=== PATIENT | female | born 1965 | race Caucasian/White ===

== ENCOUNTER 2021-09-26 16:00 | Emergency (ER) | payer BC ==
[2021-09-26] MEDS ORDERED: Norflex 60 MG/2 ML ONE (16:19)
[2021-09-26] MEDS ORDERED: TORAdol 30 mg Injection ONE (16:19)
[2021-09-26] MEDS ORDERED: TORAdol 30 mg Injection IM ONE (16:30)
[2021-09-26] MEDS ORDERED: Norflex 60 MG/2 ML IM ONE (16:30)
--- NOTE | 2021-09-26 17:14 | XRAY ---
Indication: Pain. No known injury. Comparison: None 3 view right shoulder demonstrates mild osteopenia. No other bony, articular, or soft tissue abnormalities.
[2021-09-26] MEDS ORDERED: PERCOCET TABLET 5/325MG PO STA (17:34)
[2021-09-26] MEDS ORDERED: NORCO 5/325 MG PO ONE (17:34)
[2021-09-26] MEDS ORDERED: PERCOCET TABLET 5/325MG ONE (17:37)
[2021-09-26] MEDS ORDERED: NORCO 5/325 MG ONE (17:38)
--- NOTE | 2021-09-26 17:54 | ERPHSYRPT ---
- History of Present Illness Time Seen by Provider: 09/26/21 16:07 Source: patient Exam Limitations: no limitations Patient Subjective Stated Complaint: pt here for pain to upper right arm since thursday getting worse, with numbess to fingers, she was seen by chiropractor on thursday, and is taking soma. no injury Triage Nursing Assessment: pt walked in, resp easy, crying out in pain, face mask in place, no bruisng or swelling noted, has full range of motion to arm, strong radial pulse Physician History: 56 years old female with history of chronic pain syndrome, hypertension, hypothyroidism, GERD presented in the ER with chief complaint of right shoulder pain sudden onset 3 days ago with radiation to right upper extremity moderate to severe sharp nature pain without any significant aggravating or relieving factor s. Reports occasional partial relief with moving in a certain position with some tingling sensation in the fingers as well. She was seen at chiropractor office for possible radiculopathy but did not see any improvement. Denies any weakness in right upper extremity or limitation range of motion. Denies any neck pain. No fall or trauma reported. No chest pain palpitations or shortness of breath. Occurred: days ago (3) Method of Injury: unknown Quality: sharpness Severity of Pain-Max: severe Severity of Pain-Current: severe Extremities Pain Location: shoulder: right, arm: right Modifying Factors: Improves With: nothing Associated Symptoms: none Allergies/Adverse Reactions: amoxicillin trihydrate [From Amoxil] Allergy (Mild, Verified 09/26/21 16:14) aspirin Allergy (Mild, Verified 09/26/21 16:14) cephalexin monohydrate [From Keflex] Allergy (Mild, Verified 09/26/21 16:14) morphine Allergy (Mild, Verified 09/26/21 16:14) Penicillins Allergy (Mild, Verified 09/26/21 16:14) Home Medications: Amlodipine Besylate [Norvasc] 5 mg PO DAILY 06/14/13 [History] Carisoprodol [Soma] 350 mg PO BID 06/14/13 [History] Celecoxib [Celebrex] 100 mg PO DAILY 06/14/13 [History] Esomeprazole Magnesium [Nexium] 40 mg PO DAILY 06/14/13 [History] Levothyroxine Sodium [Synthroid] 50 mcg PO DAILY 06/14/13 [History] Hx Tetanus, Diphtheria Vaccination/Date Given: No Hx Influenza Vaccination/Date Given: No Hx Pneumococcal Vaccination/Date Given: No Immunizations Up to Date: Yes Travel Risk - International Travel Have you traveled outside of the country in past 3 weeks: No - Coronavirus Screening Are you exhibiting any of the following symptoms?: No Close contact with a COVID-19 positive Pt in past 14-21 Days: No - Vaccine Status Have you recieved a Covid-19 vaccination: No - Review of Systems Constitutional: No Symptoms Eyes: No Symptoms Ears, Nose, & Throat: No Symptoms Respiratory: No Symptoms Cardiac: No Symptoms Abdominal/Gastrointestinal: No Symptoms Genitourinary Symptoms: No Symptoms Musculoskeletal: Joint Pain Skin: No Symptoms Neurological: No Symptoms Psychological: Anxiety Endocrine: No Symptoms Hematologic/Lymphatic: No Symptoms - Past Medical History Pertinent Past Medical History: Yes Cardiac History: Hypertension Endocrine Medical History: Hypothyroidism Musculoskeletal History: Arthritis GI Medical History: GERD, Other Other Medical History: CHRONIC BACK PAIN - Past Surgical History Past Surgical History: Yes Female Surgical History: Section, Tubal Ligation - Social History Smoking Status: Current every day smoker How long have you smoked: 20 Exposure to second hand smoke: Yes Drug Use: none Patient Lives Alone: No - Female History Hx Last Menstrual Period: now Hx Now: No - Nursing Vital Signs Nursing Vital Signs: Initial Vital Signs Temperature 97.2 F 09/26/21 16:08 Pulse Rate 100 H 09/26/21 16:08 Respiratory Rate 20 09/26/21 16:08 Blood Pressure 147/84 09/26/21 16:08 O2 Sat by Pulse Oximetry 96 09/26/21 16:08 Pain Scale Pain Intensity 8 - Physical Exam General Appearance: no apparent distress, alert, anxiety Eyes, Ears, Nose, Throat Exam: normal ENT inspection Neck Exam: normal inspection, non-tender, supple, full range of motion Cardiovascular/Respiratory Exam: chest non-tender, normal breath sounds, regular rate/rhythm, heart sounds normal Back Exam: normal inspection, normal range of motion, No CVA tenderness Shoulder Exam: normal inspection, non-tender, no evidence of injury, normal ROM, No bone tenderness, No soft tissue tenderness Elbow/Forearm Exam: normal inspection, non-tender, no evidence of injury, normal ROM Wrist Exam: normal inspection, non-tender, no evidence of injury, normal ROM Hand Exam: normal inspection, non-tender, no evidence of injury, normal ROM DTR - Upper Extremity Exam: bicep (R): 2+, bicep (L): 2+, tricep (R): 2+, tricep (L): 2+ Neuro/Tendon Exam: normal sensation, normal motor functions Mental Status Exam: alert, oriented x 3, cooperative Skin Exam: normal color SpO2 Interpretation: normal SpO2: 95 O2 Delivery: Room Air Ordered Tests: Active Orders 24 hr Category Date Time Status SHOULDER Stat Exams 09/26/21 16:58 Completed Medication Summary Discontinued Medications Generic Name Dose Route Start Last Admin Trade Name Lázaro PRN Reason Stop Dose Admin Hydrocodone Bitart/Acetaminophen 2 tab 09/26/21 17:34 09/26/21 17:38 Hydrocodone/Apap 5/325 Mg Tablet PO 09/26/21 17:35 2 tab SENT HOME W/ PATIENT ONE Administration Hydrocodone Bitart/Acetaminophen Confirm 09/26/21 17:38 Hydrocodone/Apap 5/325 Mg Tablet Administered 09/26/21 17:39 Dose 2 tab .ROUTE .STK-MED ONE Ketorolac Tromethamine Confirm 09/26/21 16:19 Ketorolac Tromethamine 30 Mg/Ml Inj Administered 09/26/21 16:20 Dose 30 mg .ROUTE .STK-MED ONE Ketorolac Tromethamine 30 mg 09/26/21 16:30 09/26/21 16:32 Ketorolac Tromethamine 30 Mg/Ml Inj IM 09/26/21 16:31 30 mg STAT ONE Administration Orphenadrine Citrate Confirm 09/26/21 16:19 Orphenadrine Citrate 60 Mg/2 Ml Amp Administered 09/26/21 16:20 Dose 60 mg .ROUTE .STK-MED ONE Orphenadrine Citrate 60 mg 09/26/21 16:30 09/26/21 16:31 Orphenadrine Citrate 60 Mg/2 Ml Amp IM 09/26/21 16:31 60 mg STAT ONE Administration Oxycodone/Acetaminophen 2 tab 09/26/21 17:34 09/26/21 17:39 Oxycodone Hcl/Apap 5 Mg/325 Mg Tablet PO 09/26/21 17:35 2 tab STAT STA Administration Oxycodone/Acetaminophen Confirm 09/26/21 17:37 Oxycodone Hcl/Apap 5 Mg/325 Mg Tablet Administered 09/26/21 17:38 Dose 2 tab .ROUTE .STK-MED ONE - Progress Progress: improved Progress Note: 09/26/21 17:51 56 years old is evaluated for shoulder pain. She has no restricted range of motion. No focal tenderness. X-rays negative for any acute findings. Distal neurovascular well intact. She is given Toradol/Norflex which did help with the pain but patient requesting IV narcotic pain medication. She is given oral Percocet and on reevaluation feeling better. Patient is asking for pain medications to go home. She is under pain management, she is advised to follow- up with her pain clinic and will give couple of pills to go home from the hospital. I believe patient has radiculopathy and recommended continue with Soma along with other medications. I have also obtain EKG which showed normal sinus rhythm without any acute ischemic changes. Seems more of a musculoskeletal and do not think needs any cardiac work-up and is stable for discharge. Counseled pt/family regarding: diagnosis, need for follow-up, rad results, smoking cessation - Departure Departure Disposition: Home Clinical Impression: Acute pain of right shoulder Condition: Stable Critical Care Time: No Referrals: ANSELMO FELIX MD [Primary Care Provider] - Follow up/PCP as directed (Tomorrow for reevaluation) Instructions: Shoulder Impingement (DC), Shoulder Tendinopathy (DC) Additional Instructions: Take Tylenol/ibuprofen as needed. Follow-up with your primary pain management tomorrow. Return to ER for worsening pain, numbness weakness of right upper extremity or if having any chest pain palpitations or shortness of breath.
[2021-09-26] MEDS ORDERED: MORPHINE SULFATE 4 MG INJ ONE (18:26)
[2021-09-26] MEDS ORDERED: MORPHINE SULFATE 4 MG INJ IM ONE (18:47)
[2021-09-30 16:59] VITALS: BP 147/84; PULSE 72; O2SAT 95
== END 2021-09-26 18:49 | disposition home or self-care (01) ==
LOC: ED 16:00
DX: M25.511 Pain in right shoulder (principal); G89.4 Chronic pain syndrome; I10 Essential (primary) hypertension; Z72.0 Tobacco use
CPT/HCPCS: 73030; 93005; 96372; 99284; J1885; J2270; J2360; A9270-GY

== ENCOUNTER 2024-04-13 05:55 | Day surgery (SDC) | payer BC ==
[2024-04-13] MEDS ORDERED: Epinephrine Preservative Free 1 MG/ML IJ ONE (05:56)
[2024-04-13 06:29] VITALS: RESP 18
[2024-04-13] MEDS: Lactated Ringers 1,000 ML IV SCH (06:35)
[2024-04-13] MEDS ORDERED: CLINDAMYCIN-D5W 900 MG/50 ML*** 900 MG/50 ML BAG IV ONE (06:53)
[2024-04-13] MEDS: CLINDAMYCIN-D5W 900 MG/50 ML*** 900 MG/50 ML BAG IV SCH (06:54)
[2024-04-13] MEDS ORDERED: Versed 2 MG/2 ML Injection ONE (07:36)
[2024-04-13] MEDS: Versed 2 MG/2 ML Injection IV ONE (07:37)
[2024-04-13] MEDS ORDERED: Epinephrine Preservative Free 1 MG/ML ONE (09:00)
[2024-04-13] MEDS ORDERED: Lactated Ringers 1,000 ML IV ONE (09:00)
[2024-04-13] MEDS ORDERED: Decadron 4 MG INJ ONE (09:32)
[2024-04-13] MEDS ORDERED: Zofran 4 MG/2 ML VIAL ONE (09:32)
[2024-04-13] MEDS ORDERED: DIPRIVAN 200 MG/20 ML IV ONE (09:32)
[2024-04-13] MEDS ORDERED: Xylocaine-Mpf 2% 5 Ml Vial ONE (09:32)
[2024-04-13] MEDS ORDERED: SUBLIMAZE 100 MCG/2 ML ONE ×3 (09:32→11:24)
[2024-04-13] MEDS ORDERED: Hydromorphone 1 mg/ml Injection ONE ×2 (10:20→10:57)
[2024-04-13 12:03] VITALS: TEMP 97
[2024-04-13 12:21] VITALS: BP 122/86; PULSE 93; O2SAT 92
--- NOTE | 2024-04-13 14:16 | OP ---
DATE OF PROCEDURE: 04/13/2024 0944 PREOPERATIVE DIAGNOSIS: Right medial meniscal tear. POSTOPERATIVE DIAGNOSIS: Right medial meniscal tear and degenerative joint disease. PROCEDURES: 1) Right knee arthroscopy with partial medial meniscectomy. 2) Chondroplasty of the patella and lateral femoral condyle. ATTENDING PHYSICIAN: RAUL BRIAN M.D. ANESTHESIA: General. ESTIMATED BLOOD LOSS: Zero. FLUIDS: Per anesthesia records. SPECIMENS: None. DRAINS: None. COMPLICATIONS: None. FINDINGS: About 1 cm area grade 2 degenerative joint disease on the patellar apex. ACL was okay. The medial meniscus had a tear in the red-white zone about 5 mm wide in the posterior meniscus at about 2:00 position. The medial compartment articular surfaces were good. The lateral meniscus was cut at the lateral compartment and showed about 1 cm grade 3 to grade 4 defect on the lateral tibial plateau. INDICATIONS FOR PROCEDURE: The patient is a 59-year-old white female with painful right knee refractory to conservative care. She wishes to have this debrided for pain relief. DESCRIPTION OF PROCEDURE: Patient was seen in the holding area. The left knee identified as the correct one and initialed by me. Time-out was performed by me. She was taken to the OR where she had general anesthesia. She had Cleocin IV preoperatively. She had general anesthesia and positioned supine with the left lower extremity in an Jesus leg lynne and the right lower extremity was in arthroscopic leg lynne. The ports were marked and preinjected with 10 cc of 0.25% Marcaine with epinephrine. The lateral portal made 5 mm lateral to the patella and 5 mm superior to joint line with #15 blade aimed towards the notch. A lateral upper portal was made with 3 mm metallic cannula. A blunt trocar was used to introduce 30 degree scope through the lateral joint line portal with pump pressure was set at 50 mm of Mercury. Irrigating the field with normal saline with 1 cc of 1:1,000 epinephrine per 3 liter bag. A spinal needle was placed in the joint through the needle portal 5 mm medial to the patellar tendon and then a thin blade was used to follow this in. Probe was placed in portal and was used to probe the intraarticular structures with the findings as mentioned above. A biting basket and 4 mm angled shaver was used to debride the medial meniscus back to a smooth edge. The angled shaver was then used to debride the loose cartilage on the lateral tibial plateau and patella. The knee is then thoroughly irrigated and all fluid was extracted. The portals were closed with 4-0 Monocryl subcuticular sutures, Steri-Strips and Mastisol and sterile dressings were applied. DISPOSITION: Patient to be weight bearing as tolerated. She will go home on [place] 7.5 mg 1 p.o. every four hours PRN dispense #[id number]. Return in one week for wound care and then see me back the first week of May.
== END 2024-04-13 12:59 | disposition home or self-care (01) ==
LOC: SDC 05:55
PROVIDERS: ATTEND Orthopaedic Surgery
DX: S83.241A Other tear of medial meniscus, current injury, right knee, initial encounter (principal); M17.11 Unilateral primary osteoarthritis, right knee; E11.9 Type 2 diabetes mellitus without complications
CPT/HCPCS: 29881; 82947; 93005; J0171; J1100; J1170; J2250; J2405; J2704; J3010